=== PATIENT | male | born 1950 | race Hispanic/Latino ===

== ENCOUNTER 2017-10-11 12:05 | Day surgery (SDC) | payer MEDICARE, MEDICAID ==
[2017-10-07 12:50] VITALS: BMI 20.9
[2017-10-11 12:24] LABS: BASO # 0.17 K/mm3 (0.0-2.0); BASO % 2.2 % (0.0-3.0); EOS # 0.2 (0.0-0.7); EOS % 2.3 % (1.5-5.0); GRAN # 5.04 (1.4-6.5); GRAN % 64.4 % (50.0-68.0); HEMOGLOBIN 10.9 g/dL (14.0-18.0); LYMPH # 2.1 (1.2-3.4); LYMPH % 26.5 % (22.0-35.0); MEAN CELL VOLUME 76.8 fl (80.0-105.0); MEAN CORPUSCULAR HGB CONC 32.5 g/dl (31.0-37.0); MEAN PLATELET VOLUME 9.6 fl (7.0-11.0); MONO # 0.4 (0.1-0.6); MONO % 4.6 % (1.0-6.0); RBC 4.36 10^6/uL (3.5-6.1); RED CELL DISTRIBUTION WIDTH 17.5 % (11.5-14.5); WHITE BLOOD COUNT 7.8 10^3/ul (4.5-11.0)
[2017-10-11 12:38] LABS: CALCIUM 9.7 mg/dL (8.4-10.5)
[2017-10-11 12:48] LABS: INR 1.15 (0.93-1.08); PARTIAL THROMBOPLASTIN TIME 30.8 Seconds (25.1-36.5); PROTHROMBIN TIME 13.3 SECONDS (9.4-12.5)
[2017-10-11] MEDS ORDERED: Midazolam 2 MG/2 ML VIAL ONE ×2 (14:43→15:13)
[2017-10-11] MEDS ORDERED: Lidocaine 2% Inj (20ml) ONE (14:43)
[2017-10-11] MEDS ORDERED: Iodixanol 320 mg/ml 150 ml Bottle IV ONE (14:43)
[2017-10-11] MEDS ORDERED: Iodixanol 320 MG/ML 200 ML BOTTLE IV ONE ×2 (14:43→14:46)
[2017-10-11] MEDS ORDERED: Nitroglycerin 50mg in D5W 50 MG/250 ML BOTTLE IV ONE (14:57)
[2017-10-11] MEDS ORDERED: Dextrose 50% SYRINGE Inj (50 ml) ONE (16:27)
[2017-10-11] MEDS ORDERED: Oxycodone/Acetaminophen 5/325 mg Tab PO PRN (16:27)
[2017-10-11] MEDS ORDERED: Sodium Chloride 0.45% 1,000 ML IV SCH (16:30)
[2017-10-11 18:03] VITALS: RESP 20; TEMP 97
--- NOTE | 2017-10-11 18:20 | VASCULAR ---
PROCEDURE: 1. Abdominal aortogram and selective left lower extremity runoff 2. Distal left SFA and popliteal artery silver Hawk atherectomy, drug-eluting balloon angioplasty, and Viabahn stent graft placement 3. Anterior tibial artery origin angioplasty HISTORY: Severe peripheral vascular disease. Left SFA and popliteal recanalization with popliteal stent placement in 2016. [place] stent with recurrent severe claudication and early rest pain. Attempt to recannulize. PHYSICIAN(S): Luis Daniel Robnis M.D. TECHNIQUE: The relative risks and indications of the procedure were explained to the patient and consent obtained. The patient was hydrated prior to the procedure and the appropriate labs drawn. The patient was placed supine on the arteriogram table and the right groin prepped and draped in the usual sterile fashion. Conscious sedation and monitoring were provided throughout the procedure by a nurse. Via a right common femoral artery approach, a 5 [place] sheath was placed in the right groin. Through the sheath and over a guidewire, a 5 [place] flush catheter was placed in the distal abdominal aorta and an LPO DSA abdominal pelvic arteriogram performed. Imaging was limited due to the patient's elevated BUN and creatinine. The catheter was advanced over the bifurcation and placed in the left common femoral artery. An overlapping DSA left lower extremity arteriogram was performed to the calves. 0.035 glidewire was placed in the mid left SFA. A 7 [place] 65 cm destination sheath was placed in the mid left SFA. Heparin and nitroglycerin were given. The occluded distal left SFA and popliteal artery stent were crossed rather easily with 0.035 angled glidewire and 5 [place] catheter. 0.014 support wire was placed in the large left posterior tibial artery. [place] atherectomy of the distal left SFA and left popliteal artery stent was performed with and LS catheter. Four passes were performed. Antegrade flow was re-established. A suboptimal result was obtained. The left popliteal artery was dilated with a 5 millimeter x 150 drug-eluting balloon. The distal left SFA was dilated with a 6 mm x 150 drug-eluting balloon. A suboptimal result was obtained in the distal left SFA. Subsequently 86 mm by 15 cm Viabahn stent graft was deployed in the distal left SFA. This was dilated with a 6 mm balloon. The origin of the left posterior tibial artery was dilated with a 4 mm x 4 cm balloon. Completion angiograms were obtained. An excellent angiographic result was obtained with some mild residual stenosis within the left popliteal stent. The sheath was removed hemostasis obtained with a Perclose device. The patient tolerated the procedure well. Additional hydration was given. FINDINGS: The distal abdominal aorta is patent and calcified. Aortic bifurcation is patent. The common and external iliac arteries are patent on two views. Posterior plaque is noted in both common femoral arteries. The left profunda femoral artery is large. The left SFA is smoothly disease proximally. There is an occlusion of the left SFA in the adductor canal. This is 8 cm above the popliteal artery stent. The left popliteal artery stent is occluded. There is reconstitution of the terminal left popliteal artery. The left posterior tibial artery is large and the predominant supply to the foot. Left peroneal artery occludes in mid segment. The left anterior tibial artery occludes near its origin IMPRESSION: 1.Successful recanalization of the distal left SFA and popliteal artery stent using silver Hawk atherectomy, drug-eluting balloon angioplasty and stent graft placement as described above. 2. Successful left posterior tibial artery origin angioplasty. 3. Severe left tibial disease. Single vessel runoff via the left posterior tibial artery.
[2017-10-11 18:41] VITALS: BP 161/70; PULSE 73; O2SAT 95
== END 2017-10-11 18:54 | disposition home or self-care (01) ==
LOC: SDSVAS 12:05
PROVIDERS: ATTEND Radiology Vascular & Interventional Radiology
DX: I70.222 Atherosclerosis of native arteries of extremities with rest pain, left leg (principal)
CPT/HCPCS: 36415; 37227; 37228; 75710; 80048; 85025; 85610; 85730; 99152; 99153; C1725 ×5; C1760 ×2; C1764; C1769 ×4; C1876; C1887 ×2; C1894; J1644 ×2; J2250; J2405; J3010; J7030 ×2; Q9966

== ENCOUNTER 2017-10-12 09:47 | Emergency (ER) | payer MEDICARE, MEDICAID ==
[2017-10-12 09:47] VITALS: BMI 20.9
[2017-10-12 09:59] VITALS: TEMP 98.3
[2017-10-12] MEDS ORDERED: Oxycodone/Acetaminophen 5/325 mg Tab PO STA ×2 (10:44→13:13)
--- NOTE | 2017-10-12 10:49 | ED PDOC ---
Arrival/HPI - General Chief Complaint: Lower Extremity Problem/Injury Time Seen by Provider: 10/12/17 10:31 Historian: Patient - History of Present Illness Narrative History of Present Illness (Text): 10/12/17 10:44 A 67 year old male presents to the emergency department complaining of left lower leg pain since last night. Patient notes intermittent calf pain radiating to ankle and foot. He reports his pain began shortly after being discharged from the hospital after being treated for a blocked artery. Patient took Percocet 5mg, with mild relief. Patient denies any fever, chills, nausea, vomiting, abdominal pain, chest pain, shortness of breath or any other complaints. PMD: Dr. Maria Vascular surgeon: Dr. Luis Daniel Robins Time/Duration: Other (last night) Symptom Course: Unchanged, Intermittent Context: Home Past Medical History - Provider Review Nursing Documentation Reviewed: Yes - Infectious Disease Hx of Infectious Diseases: None - Tetanus Immunization Tetanus Immunization: Unknown - Cardiac Hx Pacemaker: No - Pulmonary Hx Respiratory Disorders: No - Neurological Hx Paralysis: No - HEENT Hx HEENT Disorder: No - Renal Hx Renal Disorder: No - Endocrine/Metabolic Hx Endocrine Disorders: Yes Hx Diabetes Mellitus Type 2: Yes - Hematological/Oncological Hx Blood Transfusions: No - Integumentary Hx Dermatological Disorder: No - Musculoskeletal/Rheumatological Hx Musculoskeletal Disorders: Yes - Gastrointestinal Hx Gastrointestinal Disorders: No - Genitourinary/Gynecological Hx Genitourinary Disorders: No - Psychiatric Hx Emotional Abuse: No Hx Physical Abuse: No Hx Substance Use: No - Past Surgical History Past Surgical History: No Previous - Anesthesia Hx Anesthesia Reactions: No Hx Malignant Hyperthermia: No - Suicidal Assessment Feels Threatened In Home Enviroment: No Family/Social History - Physician Review Nursing Documentation Reviewed: Yes Family/Social History: No Known Family HX Smoking Status: Light Smoker < 10 Cigarettes Daily Hx Alcohol Use: No Hx Substance Use: No Allergies/Home Meds Allergies/Adverse Reactions: Allergies No Known Allergies Allergy (Verified 10/12/17 10:01) Review of Systems - Physician Review All systems were reviewed & negative as marked: Yes - Review of Systems Constitutional: absent: Fevers, Night Sweats Respiratory: absent: SOB Cardiovascular: Calf Pain (left calf pain radiating down towards ankle and foot) . absent: Chest Pain Gastrointestinal: absent: Abdominal Pain, Nausea, Vomiting Physical Exam - Physical Exam Narrative Physical Exam (Text): Constitutional: No acute distress. Head: Normocephalic. Atraumatic. Eyes: PERRL. ENT: Moist mucous membranes. Neck: Supple. Cardiovascular: Regular rate. Chest: No tenderness. Respiratory: Clear to auscultation bilaterally. GI: Soft. Nontender. Nondistended. : C/D/I dressing to right groin. Back: No CVA tenderness. Musculoskeletal: Distal toes of LLE cold to touch. No dark or blue skin discoloration. No gangrene. Full ROM in extremities. No tenderness or swelling of extremities. Skin: No rash. Neurologic: Alert, no focal deficit. Vital Signs Reviewed: Yes Vital Signs Temp Pulse Resp BP Pulse Ox 10/12/17 13:27 98.3 F 61 18 130/65 98 10/12/17 12:49 61 18 130/65 98 10/12/17 11:07 64 18 132/69 98 10/12/17 09:57 98.3 F 68 16 134/73 99 Temperature: Afebrile Blood Pressure: Normal Pulse: Regular Respiratory Rate: Normal Appearance: Positive for: Well-Appearing, Non-Toxic, Comfortable Pain Distress: None Mental Status: Positive for: Alert and Oriented X 3 Medical Decision Making ED Course and Treatment: 10/12/17 10:44 Impression: A 67 year old male with left lower extremity pain Plan: -- Percocet -- Reassess and disposition Progress Notes: Discussed case with Dr. Robins who recommended repeat JUNIOR. JUNIOR shows improved indices compared to few days ago. No leg edema. Creatinine not worsened. Patient offered observation for further pain control but he refused, requested pain medication. BONSAI TENDER checked, no previous opiates. Dr. Robins states patient can follow up with him this upcoming week. - Lab Interpretations Lab Results: 10/12/17 11:35 10/12/17 11:35 Lab Results 10/12/17 11:35: Sodium 139, Potassium 4.4, Chloride 102, Carbon Dioxide 25, Anion Gap 16, BUN 33 H, Creatinine 1.7 H, Est GFR ( Amer) 49, Est GFR ( Non-Af Amer) 40, Random Glucose 128 H, Calcium 9.2, Total Bilirubin 0.3, AST 35 , ALT 32, Alkaline Phosphatase 23 L, Total Protein 6.7, Albumin 4.2, Globulin 2.5, Albumin/Globulin Ratio 1.7 05/09/18 11:35: WBC 8.6, RBC 4.35, Hgb 10.9 L, Hct 33.4 L, MCV 76.8 L, MCH 25.1 , MCHC 32.6, RDW 17.4 H, Plt Count 445, MPV 10.0, Gran % 70.7 H, Lymph % (Auto) 19.6 L, [place] % (Auto) 6.0, Eos % (Auto) 2.4, Baso % (Auto) 1.3, Gran # 6.09, Lymph # (Auto) 1.7, [place] # (Auto) 0.5, Eos # (Auto) 0.2, Baso # (Auto) 0.11 - RAD Interpretation Radiology Orders: 10/12/17 11:12 LOWER EXT ART NON-INV COMPL [US] Stat - Medication Orders Current Medication Orders: Discontinued Medications Oxycodone/Acetaminophen (Percocet 5/325 Mg Tab) 1 tab PO STAT STA Stop: 10/12/17 10:45 Last Admin: 10/12/17 11:11 Dose: 1 tab MAR Pain Assessment Document 10/12/17 11:11 EQ (Rec: 10/12/17 11:11 EQ [id number]) Pain Reassessment Is this a pain reassessment? No Sleep Is patient sleeping during reassessment? No Presence of Pain Presence of Pain Yes Oxycodone/Acetaminophen (Percocet 5/325 Mg Tab) 1 tab PO STAT STA Stop: 10/12/17 13:14 Last Admin: 10/12/17 13:20 Dose: 1 tab MAR Pain Assessment Document 10/12/17 13:20 EQ (Rec: 10/12/17 13:20 EQ [id number]) Pain Reassessment Is this a pain reassessment? No Sleep Is patient sleeping during reassessment? No Presence of Pain Presence of Pain Yes Pain Scale Used Pain Scale Used Numeric - Scribe Statement The provider has reviewed the documentation as recorded by the Yousufibrehana Johnson Provider Scribe Attestation: All medical record entries made by the Scribe were at my direction and personally dictated by me. I have reviewed the chart and agree that the record accurately reflects my personal performance of the history, physical exam, medical decision making, and the department course for this patient. I have also personally directed, reviewed, and agree with the discharge instructions and disposition. Disposition/Present on Arrival - Present on Arrival Any Indicators Present on Arrival: No History of DVT/PE: No History of Uncontrolled Diabetes: No Urinary Catheter: No History of Decub. Ulcer: No History Surgical Site Infection Following: None - Disposition Have Diagnosis and Disposition been Completed?: Yes Diagnosis: Leg pain Disposition: HOME/ ROUTINE Disposition Time: 13:00 Patient Plan: Discharge Condition: STABLE Discharge Instructions (ExitCare): Peripheral Vascular (Arterial) Disease (DC) Prescriptions: oxyCODONE/Acetaminophen [Percocet 5/325 mg Tab] 2 tab PO Q6 #14 tab Referrals: Luis Daniel Robins MD [Staff Provider] - Follow up with primary Forms: [email or web address] ([place])
[2017-10-12 11:07] VITALS: RESP 18; O2SAT 98
[2017-10-12 11:54] LABS: BASO # 0.11 K/mm3 (0.0-2.0); BASO % 1.3 % (0.0-3.0); EOS # 0.2 (0.0-0.7); EOS % 2.4 % (1.5-5.0); GRAN # 6.09 (1.4-6.5); GRAN % 70.7 % (50.0-68.0); HEMOGLOBIN 10.9 g/dL (14.0-18.0); LYMPH # 1.7 (1.2-3.4); LYMPH % 19.6 % (22.0-35.0); MEAN CELL VOLUME 76.8 fl (80.0-105.0); MEAN CORPUSCULAR HEMOGLOBIN 25.1 pg (25.0-35.0); MEAN CORPUSCULAR HGB CONC 32.6 g/dl (31.0-37.0); MONO # 0.5 (0.1-0.6); RBC 4.35 10^6/uL (3.5-6.1); RED CELL DISTRIBUTION WIDTH 17.4 % (11.5-14.5)
[2017-10-12 12:12] LABS: ALB/GLOB RATIO 1.7 (1.1-1.8); ALBUMIN 4.2 g/dL (3.0-4.8); CALCIUM 9.2 mg/dL (8.4-10.5)
[2017-10-12 12:34] LABS: WHITE BLOOD COUNT 8.6 10^3/ul (4.5-11.0)
[2017-10-12 12:49] VITALS: BP 130/65; PULSE 61
--- NOTE | 2017-10-13 16:24 | US ---
PROCEDURE: Lower extremity JUNIOR exam HISTORY: Peripheral vascular disease. Recent left popliteal artery stent recanalization. Left foot ischemia. Evaluate for subacute thrombosis. PHYSICIAN(S): Luis Daniel Robins MD. FINDINGS: The right resting JUNIOR is normal, 1.0. The left resting JUNIOR is moderately abnormal, 0.67 The brachial systolic pressures are symmetric. The pressures and PVR waveforms are normal at all levels on the right There is a significant gradient across the left knee. The left calf ankle and metatarsal waveforms are severely blunted. This is not significantly changed from the pre intervention exam. It likely represents subacute thrombosis of the distal left SFA, popliteal, or trifurcation. IMPRESSION: 1. No change in pressures and PVR waveforms on the left. This likely represents subacute thrombosis of the left distal SFA, popliteal, and trifurcation.
== END 2017-10-12 13:27 | disposition home or self-care (01) ==
LOC: ED 09:47
DX: M79.605 Pain in left leg (principal); E11.9 Type 2 diabetes mellitus without complications

== ENCOUNTER 2017-10-25 10:50 | Day surgery (SDC) | payer MEDICARE, MEDICAID ==
[2017-10-25 11:21] LABS: BASO # 0.15 K/mm3 (0.0-2.0); BASO % 1.6 % (0.0-3.0); EOS # 0.3 (0.0-0.7); EOS % 2.6 % (1.5-5.0); GRAN # 6.19 (1.4-6.5); GRAN % 64.6 % (50.0-68.0); HEMOGLOBIN 11.5 g/dL (14.0-18.0); LYMPH # 2.5 (1.2-3.4); LYMPH % 26.2 % (22.0-35.0); MEAN CELL VOLUME 75.3 fl (80.0-105.0); MEAN CORPUSCULAR HEMOGLOBIN 25.1 pg (25.0-35.0); MEAN CORPUSCULAR HGB CONC 33.3 g/dl (31.0-37.0); MEAN PLATELET VOLUME 9.7 fl (7.0-11.0); MONO # 0.5 (0.1-0.6); RBC 4.58 10^6/uL (3.5-6.1); RED CELL DISTRIBUTION WIDTH 17.8 % (11.5-14.5); WHITE BLOOD COUNT 9.6 10^3/ul (4.5-11.0)
[2017-10-25 11:32] LABS: CALCIUM 9.7 mg/dL (8.4-10.5)
[2017-10-25 11:36] LABS: INR 1.09 (0.93-1.08); PARTIAL THROMBOPLASTIN TIME 33.5 Seconds (25.1-36.5); PROTHROMBIN TIME 12.5 SECONDS (9.4-12.5)
[2017-10-25] MEDS ORDERED: Heparin25000 units/250ml 1/2NS 25,000 UNITS/250 ML BAG IV ONE (12:46)
[2017-10-25] MEDS ORDERED: Lidocaine 2% Inj (20ml) ONE (12:46)
[2017-10-25] MEDS ORDERED: Nitroglycerin 50mg in D5W 50 MG/250 ML BOTTLE IV ONE (13:10)
[2017-10-25] MEDS ORDERED: Iodixanol 320 MG/ML 200 ML BOTTLE IV ONE (13:14)
[2017-10-25] MEDS ORDERED: Iodixanol 320 mg/ml 150 ml Bottle IV ONE (13:14)
[2017-10-25] MEDS ORDERED: Midazolam 2 MG/2 ML VIAL ONE ×2 (13:59→14:13)
[2017-10-25] MEDS ORDERED: Oxycodone/Acetaminophen 5/325 mg Tab PO PRN (14:58)
[2017-10-25] MEDS ORDERED: Sodium Chloride 0.45% 1,000 ML IV SCH (15:00)
[2017-10-25 16:25] VITALS: RESP 18; TEMP 98.6
[2017-10-25 16:58] VITALS: O2SAT 98
[2017-10-25 17:44] VITALS: BP 148/77; PULSE 72
--- NOTE | 2017-10-25 19:32 | VASCULAR ---
PROCEDURE: 1. Abdominal aortogram and selective left lower extremity runoff. 2. Left below-knee popliteal angioplasty. 3. Small left posterior tibial artery angioplasty. 4. Term vascular ultrasound of the left popliteal artery below the knee and the proximal left posterior tibial artery. HISTORY: Severe peripheral vascular disease. Recent left popliteal artery recanalization with subacute thrombosis. Evaluate for dissection or thrombus. PHYSICIAN(S): Luis Daniel Robins MD. TECHNIQUE: The relative risks and indications of the procedure were explained to the patient and consent obtained. The patient was hydrated prior to the procedure and the appropriate labs drawn. The patient was placed supine on the arteriogram table and the right groin prepped and draped in the usual sterile fashion. Conscious sedation and monitoring were provided throughout the procedure by a nurse. Via a right common femoral artery approach, a 5 [place] sheath was placed in the right groin. Through the sheath and over a guidewire, a 5 [place] flush catheter was in the distal abdominal aorta and an LPO DSA abdominal pelvic arteriogram performed. The catheter was advanced over bifurcation placed in the left common femoral artery. An overlapping DSA left lower extremity arteriogram was performed. The catheter was advanced into the proximal left SFA. Distal imaging was performed. A support wire was placed in the left SFA. A 6 [place]an 70 cm sheath was placed in the mid left SFA. Nitroglycerin heparin were given. 0.035 angled glidewire and 5 [place] catheter advanced in the proximal left posterior tibial artery. Exchange is made for 0.014 support wire. Additional images were performed. Intravascular ultrasound of the distal left SFA and popliteal arteries performed. Intravascular ultrasound of the proximal left anterior tibial artery was performed. This revealed that the previously placed stents were widely patent without thrombus. There was residual atherosclerotic cysts of the terminal left popliteal artery and proximal left posterior tibial artery. Subsequently the proximal left posterior tibial artery and left popliteal artery distally were dilated with a 5 mm x 120 mm balloon. Left posterior tibial artery is also dilated with a 4 mm x 4 cm balloon. Intravascular ultrasound revealed improved result. Completion angiograms were obtained. The sheath was removed hemostasis obtained. The patient tolerated the procedure well. FINDINGS: The distal abdominal aorta is calcified and patent. Aortic bifurcation is patent. The common iliac arteries are somewhat disease without radiographically significant stenosis. The internal iliac arteries are patent bilaterally. The external iliac arteries are patent bilaterally. Left lower extremity: There is mild to moderate posterior plaque in the left common femoral artery. The left profunda femoral artery is patent. There is calcified smooth disease the left SFA. Overlapping stent grafts and stents are seen in the terminal left SFA and left popliteal arteries. The stents are widely patent. There is single vessel runoff via a large left posterior tibial artery. Left anterior tibial and peroneal artery is occluded proximally. Distal images reveal a patent plantar arch with pedal occlusive disease and collaterals. IMPRESSION: 1. Patent left SFA and popliteal stents. 2. Residual stenosis of the distal left popliteal artery and proximal left posterior tibial arteries. 3. Successful left below-knee popliteal artery angioplasty with a 5 mm balloon. 4. Successful proximal left posterior tibial artery angioplasty. 5. Intravascular ultrasound the distal left SFA, popliteal artery, and proximal left posterior tibial arteries.
== END 2017-10-25 18:30 | disposition home or self-care (01) ==
LOC: SDSVAS 10:50
PROVIDERS: ATTEND Radiology Vascular & Interventional Radiology
DX: I70.202 Unspecified atherosclerosis of native arteries of extremities, left leg (principal); I10 Essential (primary) hypertension; E78.5 Hyperlipidemia, unspecified; E11.9 Type 2 diabetes mellitus without complications; Z79.84 Long term (current) use of oral hypoglycemic drugs
CPT/HCPCS: 36415; 37224; 37228; 37253; 75710; 80048; 85025; 85610; 85730; 99152; 99153; C1725 ×3; C1753; C1760; C1769 ×4; C1887; C1894; J0690; J1644 ×3; J2250; J2405; J2997; J3010; J7030 ×2; Q9966

== ENCOUNTER 2017-11-17 15:27 | Emergency (ER) | payer MEDICARE, MEDICAID ==
[2017-11-17 16:41] VITALS: BMI 20.4
[2017-11-17 17:30] LABS: URINE BILIRUBIN NEGATIVE (NEGATIVE); URINE BLOOD NEGATIVE (NEGATIVE); URINE GLUCOSE (UA) NEGATIVE (NEGATIVE); URINE LEUKOCYTE ESTERASE LARGE Leu/uL (NEGATIVE); URINE PROTEIN NEGATIVE mg/dL (<30 mg/dL); URINE UROBILINOGEN 0.2 E.U./dL (<1 E.U./dL)
[2017-11-17 17:33] LABS: URINE APPEARANCE SL CLOUDY (CLEAR); URINE COLOR LIGHT YELLOW (YELLOW)
[2017-11-17 17:39] LABS: URINE BACTERIA FEW (NEG); URINE EPITHELIAL CELLS 0 - 2 /hpf (0-5); URINE RBC 0 - 2 /hpf (0-2); URINE WBC 20 - 25 /hpf (0-6)
[2017-11-17 17:50] LABS: VENOUS BLOOD GAS BASE EXCESS -1.3 mmol/L (0.0-2.0); VENOUS BLOOD GAS PO2 158 mm/Hg (30-55); VENOUS BLOOD PH 7.42 (7.32-7.43)
[2017-11-17 17:58] LABS: BASO # 0.09 K/mm3 (0.0-2.0); BASO % 0.6 % (0.0-3.0); EOS % 0.1 % (1.5-5.0); GRAN # 13.23 (1.4-6.5); GRAN % 88.8 % (50.0-68.0); HEMOGLOBIN 10.1 g/dL (14.0-18.0); LYMPH # 0.8 (1.2-3.4); LYMPH % 5.4 % (22.0-35.0); MEAN CELL VOLUME 74.6 fl (80.0-105.0); MEAN CORPUSCULAR HEMOGLOBIN 24.9 pg (25.0-35.0); MEAN CORPUSCULAR HGB CONC 33.4 g/dl (31.0-37.0); MEAN PLATELET VOLUME 9.9 fl (7.0-11.0); MONO # 0.8 (0.1-0.6); MONO % 5.1 % (1.0-6.0); RBC 4.05 10^6/uL (3.5-6.1); RED CELL DISTRIBUTION WIDTH 18.2 % (11.5-14.5); WHITE BLOOD COUNT 14.9 10^3/ul (4.5-11.0)
[2017-11-17 19:05] VITALS: PULSE 89
--- NOTE | 2017-11-17 19:08 | ED PDOC ---
Arrival/HPI - General Chief Complaint: Male Genitourinary Time Seen by Provider: 11/17/17 16:32 Historian: Patient - History of Present Illness Narrative History of Present Illness (Text): 11/17/17 19:04 67 year old male, whose past medical history includes diabetes, who presents to the emergency department complaining of fever, increased urination, and particulates in the urine for 2 days. Patient notes he took amoxicillin with minimal relief. Patient notes Tmax at 100. Patient denies any chest pain, shortness of breath, nausea, vomiting, diarrhea, cough, congestion, back pain, neck pain, headache, dizziness, or any other complaints. Time/Duration: < week (2 days) Symptom Onset: Gradual Symptom Course: Unchanged Activities at Onset: Light Context: Home Past Medical History - Provider Review Nursing Documentation Reviewed: Yes - Infectious Disease Hx of Infectious Diseases: None - Tetanus Immunization Tetanus Immunization: Unknown - Cardiac Hx Hypertension: Yes Hx Pacemaker: No - Pulmonary Hx Respiratory Disorders: No - Neurological Hx Paralysis: No - HEENT Hx HEENT Disorder: No - Renal Hx Renal Disorder: No - Endocrine/Metabolic Hx Endocrine Disorders: Yes Hx Diabetes Mellitus Type 2: Yes - Hematological/Oncological Hx Blood Transfusions: No - Integumentary Hx Dermatological Disorder: No - Musculoskeletal/Rheumatological Hx Musculoskeletal Disorders: Yes - Gastrointestinal Hx Gastrointestinal Disorders: No - Genitourinary/Gynecological Hx Genitourinary Disorders: No - Psychiatric Hx Emotional Abuse: No Hx Physical Abuse: No Hx Substance Use: No - Past Surgical History Past Surgical History: No Previous - Anesthesia Hx Anesthesia Reactions: No Hx Malignant Hyperthermia: No - Suicidal Assessment Feels Threatened In Home Enviroment: No Family/Social History - Physician Review Nursing Documentation Reviewed: Yes Family/Social History: Unknown Family HX Smoking Status: Light Smoker < 10 Cigarettes Daily Hx Alcohol Use: No Hx Substance Use: No Allergies/Home Meds Allergies/Adverse Reactions: Allergies No Known Allergies Allergy (Verified 10/12/17 10:01) Home Medications: Home Meds Medication Instructions Recorded Confirmed metFORMIN [glucOPHAGE] 500 mg PO DAILY 10/21/17 11/17/17 Repaglinide [Prandin] 2 mg PO TID 10/24/17 11/17/17 ALPRAZolam [Xanax] 1 mg PO TID 10/25/17 11/17/17 Atorvastatin [Lipitor] 1 tab PO HS 10/25/17 11/17/17 Fenofibrate [Tricor] 1 tab PO DAILY 10/25/17 11/17/17 Polyethylene Glycol 8000 [Base E] 1 pow PO DAILY 10/25/17 11/17/17 Pregabalin [Lyrica] 50 mg PO DAILY 10/25/17 11/17/17 SITagliptin [Januvia] 100 mg PO DAILY 10/25/17 11/17/17 Sodium Polystyrene Sulfonate 15 gm PO MWF 10/25/17 11/17/17 [Kalexate] amLODIPine [Norvasc] 10 mg PO DAILY 10/25/17 11/17/17 cloNIDine [Catapres] 0.1 mg PO TID 10/25/17 11/17/17 cloNIDine [Catapres] 0.3 mg PO TID 10/25/17 11/17/17 Review of Systems - Physician Review All systems were reviewed & negative as marked: Yes - Review of Systems Constitutional: Normal Eyes: Normal ENT: Normal Respiratory: Normal. absent: SOB, Cough Cardiovascular: Normal. absent: Chest Pain Gastrointestinal: Normal. absent: Abdominal Pain Genitourinary Male: Frequency (increased frequency in urination). absent: Hematuria Musculoskeletal: Normal. absent: Back Pain, Neck Pain Skin: Normal. absent: Rash Neurological: Normal. absent: Headache, Dizziness Endocrine: Normal Hemo/Lymphatic: Normal Psychiatric: Normal Physical Exam Vital Signs Reviewed: Yes Vital Signs Temp Pulse Resp BP Pulse Ox 11/17/17 19:58 98.7 F 89 18 138/87 100 11/17/17 19:04 89 17 140/70 98 11/17/17 15:40 98.8 F 93 H 18 144/63 96 Temperature: Afebrile Blood Pressure: Normal Pulse: Regular Respiratory Rate: Normal Appearance: Positive for: Well-Appearing, Non-Toxic, Comfortable Pain Distress: None Mental Status: Positive for: Alert and Oriented X 3 - Systems Exam Head: Present: Atraumatic, Normocephalic Pupils: Present: PERRL Extroacular Muscles: Present: EOMI Conjunctiva: Present: Normal Mouth: Present: Moist Mucous Membranes Neck: Present: Normal Range of Motion. No: Meningeal Signs, MIDLINE TENDERNESS Respiratory/Chest: Present: Clear to Auscultation, Good Air Exchange. No: Respiratory Distress, Accessory Muscle Use Cardiovascular: Present: Regular Rate and Rhythm, Normal S1, S2. No: Murmurs Abdomen: No: Tenderness, Distention, Peritoneal Signs Back: Present: Normal Inspection. No: CVA Tenderness, Midline Tenderness, Paraspinal Tenderness Upper Extremity: Present: Normal Inspection. No: Cyanosis, Edema Lower Extremity: Present: Normal Inspection. No: Edema Neurological: Present: GCS=15, CN II-XII Intact, Speech Normal Skin: Present: Warm, Dry, Normal Color. No: Rashes Psychiatric: Present: Alert, Oriented x 3, Normal Insight, Normal Concentration Medical Decision Making ED Course and Treatment: 11/17/17 19:10 Impression: 67 year old male presents to the emergency department complaining of fever, particulates in urine, and increased urination Plan: -- Rocephin -- Blood Culture -- Urine Culture -- Reassess and disposition Progress Notes: Case discussed with Dr. Maria, who recommended admission. Patietn didn't want to stay, plan was made for pt to see Dr. Maria tomorrow as outpatient. Dr. Maria wrote abx for pt as outpatient. - Lab Interpretations Lab Results: 11/17/17 17:30 11/17/17 17:30 Lab Results 11/17/17 17:30: Sodium 130 L, Chloride 94 L, Potassium 4.5, Carbon Dioxide 21, Anion Gap 19, BUN 35 H, Creatinine 1.7 H, Est GFR ( Amer) 49, Est GFR ( Non-Af Amer) 40, Random Glucose 171 H, Calcium 9.0 11/17/17 17:30: pO2 158 H, VBG pH 7.42, VBG pCO2 35.0 L, VBG HCO3 22.7, VBG Total CO2 23.8, VBG O2 Sat (Calc) 97.5 H, VBG Base Excess -1.3 L, VBG Potassium 4.5, Sodium 126.0 L, Chloride 97.0 L, Glucose 180 H, Lactate 0.8, FiO2 21.0, Venous Blood Potassium 4.5 11/17/17 17:30: WBC 14.9 H D, RBC 4.05, Hgb 10.1 L, Hct 30.2 L, MCV 74.6 L, MCH 24.9 L, MCHC 33.4, RDW 18.2 H, Plt Count 507 H, MPV 9.9, Gran % 88.8 H, Lymph % (Auto) 5.4 L, [place] % (Auto) 5.1, Eos % (Auto) 0.1 L, Baso % (Auto) 0.6, Gran # 13.23 H, Lymph # (Auto) 0.8 L, [place] # (Auto) 0.8 H, Eos # (Auto) 0.0, Baso # ( Auto) 0.09 11/17/17 17:15: Urine Color Light yellow, Urine Appearance Sl cloudy, Urine pH 6.0, Ur Specific [place] 1.010, Urine Protein Negative, Urine Glucose (UA) Negative, Urine Ketones Negative, Urine Blood Negative, Urine Nitrate Negative, Urine Bilirubin Negative, Urine Urobilinogen 0.2, Ur Leukocyte Esterase Large H , Urine RBC 0 - 2, Urine WBC 20 - 25, Ur Epithelial Cells 0 - 2, Urine Bacteria Few - Medication Orders Current Medication Orders: Discontinued Medications Ceftriaxone Sodium (Rocephin 1 Gram Ivpb) 1 gm in 100 mls @ 100 mls/hr IVPB STAT STA PRN Reason: Protocol Stop: 11/17/17 20:15 Last Admin: 11/17/17 19:25 Dose: 100 mls/hr eMAR Start Stop Document 11/17/17 19:25 AD (Rec: 11/17/17 19:25 AD [id number]) Intravenous Solution Start Date 11/17/17 Start Time 19:25 - Scribe Statement The provider has reviewed the documentation as recorded by the Scribrehana Patiño All medical record entries made by the Scribrehana were at my direction and personally dictated by me. I have reviewed the chart and agree that the record accurately reflects my personal performance of the history, physical exam, medical decision making, and the department course for this patient. I have also personally directed, reviewed, and agree with the discharge instructions and disposition. Disposition/Present on Arrival - Present on Arrival Any Indicators Present on Arrival: No History of DVT/PE: No History of Uncontrolled Diabetes: No Urinary Catheter: No History of Decub. Ulcer: No History Surgical Site Infection Following: None - Disposition Have Diagnosis and Disposition been Completed?: Yes Diagnosis: UTI (urinary tract infection) Disposition: HOME/ ROUTINE Disposition Time: 18:00 Patient Plan: Discharge Condition: IMPROVED Discharge Instructions (ExitCare): Urinary Tract Infection, Adult (DC) Additional Instructions: Dr. Maria will call in antibiotics, please followup with him tomorrow. Forms: [facility] (Danish)
[2017-11-17] MEDS ORDERED: cefTRIAXone 1 gm 1 GM/100 ML BAG IVPB STA (19:16)
[2017-11-17 20:00] VITALS: BP 138/87; RESP 18; TEMP 98.7; O2SAT 100
== END 2017-11-17 19:59 | disposition home or self-care (01) ==
LOC: ED 15:27
DX: N39.0 Urinary tract infection, site not specified (principal); I10 Essential (primary) hypertension; E11.9 Type 2 diabetes mellitus without complications; F17.210 Nicotine dependence, cigarettes, uncomplicated
CPT/HCPCS: 80048; 81001; 82803; 85025; 87040; 87086; 96374; 99284; J0696

== ENCOUNTER 2018-08-28 07:55 | Outpatient (CLI) | payer MEDICARE, MEDICAID | END 2018-08-28 07:56 | disposition home or self-care (01) | LOC: CARDIO 07:55 ==

== ENCOUNTER 2018-09-14 07:43 | Day surgery (SDC) | payer MEDICARE, MEDICAID ==
[2018-09-05 13:53] VITALS: BMI 19.8
--- NOTE | 2018-09-14 01:56 | HP ---
DATE OF EXAM: 09/13/2018 REASON FOR ADMISSION: Left heart cath, possible angioplasty, abnormal stress test, diabetes. BRIEF CLINICAL HISTORY: A 68-year-old male with past medical history of diabetes, hypertension, hyperlipidemia, abnormal stress. The patient is scheduled for elective cardiac cath and possible angioplasty. Patient is also PAD status post PTCA x2. Recently having chest pain and abnormal stress test. PAST MEDICAL HISTORY: Significant for diabetes, hypertension, hyperlipidemia, angioplasty status post PTCA that was committed twice. SOCIAL HISTORY: Denies any smoking, denies any history of alcohol abuse. CURRENT MEDICATIONS: Patient is taking metoprolol succinate 50 mg daily, clonidine 0.3 mg p.o. b.i.d., amlodipine 10 mg daily, Januvia 100 mg daily, Prandin 2 mg daily, TriCor 1 tablet daily, atorvastatin one tablet daily, aspirin 81 mg daily, Xanax 1 mg p.o. t.i.d. ALLERGIES: NO KNOWN DRUG ALLERGY. CARDIAC WORKUP: As follows; patient had a stress test dated 08/28/2018 that revealed abnormal cardiac perfusion study, partially reversible anteroapical defect suspicious for ischemia, fixed inferior defect most likely secondary to diaphragmatic attenuation, ejection fraction 58%. Patient has a peripheral vascular disease as mentioned in the last peripheral intervention was 10/28/2017 that was done by Dr. Robins, abdominal aortogram, selective lower extremity runoff, and left below-knee popliteal angioplasty, small left posterior tibial angioplasty. REVIEW OF SYSTEMS: As per HPI. PHYSICAL EXAMINATION: As follows; GENERAL: Height of the patient 6 feet. Weight of the patient 150 pounds. Body mass index 20 kg/m2. VITAL SIGNS: Temperature afebrile, heart rate 80, and blood pressure 130/80. HEENT: PERRLA intact. NECK: Supple. No carotid bruit. No thyromegaly. CHEST: Clear to auscultation. HEART: S1 and S2 regular. ABDOMEN: Soft. EXTREMITIES: Clubbing and cyanosis negative. LABORATORY DATA: Blood workup pending. IMPRESSION: A 68-year-old male with past medical history of diabetes, hypertension, hyperlipidemia, severe peripheral arterial disease status post multiple percutaneous transluminal coronary angioplasty admitted for possible angioplasty because of an abnormal stress test dated 08/28/2018 that shows apical defect suspicious for ischemia. Ejection fraction of 58%. RECOMMENDATIONS: We will load aspirin and Plavix. Risks and benefits and alternatives discussed with the patient including complication, but not limited to damage to the artery, heart attack, coronary perforation, retroperitoneal bleed. If the patient agrees, we will proceed for cardiac cath. Further recommendation after cardiac cath. We will follow with you. Thank you Dr. Maria for providing us the opportunity in taking care of the patient, Brady Sue. Yisel Davis MD
[2018-09-14 08:37] LABS: BASO # 0.27 K/mm3 (0.0-2.0); BASO % 2.7 % (0.0-3.0); EOS # 0.3 (0.0-0.7); EOS % 3.4 % (1.5-5.0); HEMOGLOBIN 12.5 g/dL (14.0-18.0); LYMPH # 2.4 (1.2-3.4); LYMPH % 24.1 % (22.0-35.0); MEAN CELL VOLUME 78.4 fl (80.0-105.0); MEAN CORPUSCULAR HGB CONC 31.8 g/dl (31.0-37.0); MEAN PLATELET VOLUME 10.2 fl (7.0-11.0); MONO # 0.7 (0.1-0.6); MONO % 6.7 % (1.0-6.0); RBC 5.01 10^6/uL (3.5-6.1); RED CELL DISTRIBUTION WIDTH 17.5 % (11.5-14.5); WHITE BLOOD COUNT 10.1 10^3/uL (4.5-11.0)
[2018-09-14 08:54] LABS: CALCIUM 10.1 mg/dL (8.4-10.5); INR 1.16; PARTIAL THROMBOPLASTIN TIME 36.6 Seconds (26.9-38.3); PROTHROMBIN TIME 13.1 SECONDS (9.4-12.5)
--- NOTE | 2018-09-14 09:38 | CARD ---
APPROVED REPORT Date of service: 09/14/2018 EKG Measurement Heart [id number] <Conclusion> Normal sinus rhythm Voltage criteria for left ventricular hypertrophy Abnormal ECG
[2018-09-14] MEDS ORDERED: Lidocaine PF 2% (5 ml) Inj (For Cardiac Arrhy) ONE (10:20)
[2018-09-14] MEDS ORDERED: Iohexol 350mgl/ml 50 ML ONE (10:21)
[2018-09-14] MEDS ORDERED: Iodixanol 320 MG/ML 200 ML BOTTLE IV ONE (10:21)
[2018-09-14] MEDS ORDERED: Midazolam 2 MG/2 ML VIAL ONE ×2 (10:39→10:59)
[2018-09-14] MEDS ORDERED: Sodium Chloride 0.9% 1,000 ML IV SCH (11:30)
--- NOTE | 2018-09-14 12:22 | CPOSTOP ---
DATE: 09/14/2018 CARDIOVASCULAR LAB PROCEDURE ORCHESTRA CONDUCTOR: Sharon heat treat technician. TYPE OF PROCEDURE: Moderate conscious sedation. SEDATION: Total 2 mg Versed, 100 mg of fentanyl given periodically, started with 1 mg of Versed and 50 mg fentanyl. BRIEF PROCEDURE: Unstable angina, abnormal stress test, severe PAD. PROCEDURE PERFORMED: Left heart catheterization. FINDINGS: Nonobstructive coronary artery disease. FINAL DIAGNOSES: Nonobstructive coronary artery disease, limited damage to the circumflex, preserved LV function. Postprocedure, the patient's condition stable. VASCULAR ACCESS SITE: Right femoral artery. CLOSURE DEVICE: Mynx. RADIATION DOSE: 3748.7 mGy unit. CUMULATIVE DOSE: 479 mGy unit. TOTAL FLOW TIME: 4.5 minutes. DATE OF PROCEDURE: 09/14/2018. Yisel Davis MD
[2018-09-14 15:29] VITALS: O2SAT 99
[2018-09-14 16:27] LABS: BASO # 0.25 K/mm3 (0.0-2.0); BASO % 2.5 % (0.0-3.0); EOS # 0.3 (0.0-0.7); EOS % 2.7 % (1.5-5.0); HEMOGLOBIN 11.9 g/dL (14.0-18.0); LYMPH # 2.6 (1.2-3.4); LYMPH % 25.7 % (22.0-35.0); MEAN CELL VOLUME 78.1 fl (80.0-105.0); MEAN CORPUSCULAR HEMOGLOBIN 25.3 pg (25.0-35.0); MEAN CORPUSCULAR HGB CONC 32.4 g/dl (31.0-37.0); MEAN PLATELET VOLUME 10.1 fl (7.0-11.0); MONO # 0.4 (0.1-0.6); MONO % 4.1 % (1.0-6.0); RBC 4.7 10^6/uL (3.5-6.1); RED CELL DISTRIBUTION WIDTH 17.4 % (11.5-14.5)
[2018-09-14 16:36] LABS: CALCIUM 9.8 mg/dL (8.4-10.5)
--- NOTE | 2018-09-14 17:58 | CARD ---
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 creatinine 1.6-1.8. INDICATION The indication(s) include : positive stress test. CASE TECHNIQUE The patient was brought electively to the Cardiac Catheterization Laboratory in a fasting state and was prepped and draped in a sterile manner. The right femoral groin was infiltrated with 2% Lidocaine subcutaneous anesthesia. A 6 Fr x 11 cm Rola sheath was inserted into the right femoral artery without difficulty. Coronary angiography was performed using coronary diagnostic catheters. Left ventriculogram was performed in REYES projection. Closure device was deployed with a 6 Fr / 7 Fr MynxGrip without any complications. The patient tolerated the procedure well and there were no complications associated with the procedure. Vessel Analysis The patient's coronary anatomy is co-dominant. The left main coronary artery is a large size vessel with diffuse calcification noted throughout this vessel and without significant stenosis. The left main bifurcates to the left anterior descending and circumflex. The left anterior descending artery is a medium size vessel with diffuse calcification noted throughout this vessel and without significant stenosis. The first diagonal branch is a small size vessel with diffuse calcification noted throughout this vessel and without significant stenosis. The second diagonal branch is a small size vessel with diffuse calcification noted throughout this vessel and without significant stenosis. The circumflex artery is a medium size vessel with diffuse calcification noted throughout this vessel and with significant stenosis. There is a 60% stenosis in the proximal segment. The first obtuse marginal branch is a medium size vessel with diffuse calcification noted throughout this vessel and without significant stenosis. The second obtuse marginal branch is a medium size vessel with diffuse calcification noted throughout this vessel and without significant stenosis. The left posterior descending artery is a medium size vessel with diffuse calcification noted throughout this vessel and without significant stenosis. The right coronary artery is a large size vessel with diffuse calcification noted throughout this vessel and without significant stenosis. The right posterior descending artery is a large size vessel with diffuse calcification noted throughout this vessel and without significant stenosis. The right posterolateral branch is a large size vessel with diffuse calcification noted throughout this vessel and without significant stenosis. Left Ventricle The left ventricle is normal in size with normal contractility. There was no cardiomyopathy. The left ventricular ejection fraction is estimated to be 55-60%. The left ventricular end diastolic pressure is 16 mmHg. There was no gradient across the aortic valve upon pullback. Conclusion Severely Calcified Coronaries. Non Obstructive Prox Cx 60% stenosis Preserved LV Fx, EF-55-60%, EDP-16 mmof Hg. Severe PAD and calcifed arteries. 30-40 cc Cotrast used. Recommendations Smoking Cessation Aggressive Medical TherapyCardiac Risk Reduction Program F/u SMA-7 after Hydration before pt. goes home. F/u SMA-[address] Maria CC; Arjun Isaacs / [place].
[2018-09-14 18:11] VITALS: TEMP 98.3
[2018-09-14 18:12] VITALS: BP 140/67; RESP 18
[2018-09-14 18:21] VITALS: PULSE 84
[2018-09-15] MEDS ORDERED: Metoprolol Succinate 50 mg XL Tab PO SCH (10:00)
== END 2018-09-14 18:15 | disposition home or self-care (01) ==
LOC: CATH 07:43
PROVIDERS: ATTEND Internal Medicine Cardiovascular Disease
DX: I25.110 Atherosclerotic heart disease of native coronary artery with unstable angina pectoris (principal); I10 Essential (primary) hypertension; E11.51 Type 2 diabetes mellitus with diabetic peripheral angiopathy without gangrene; E78.5 Hyperlipidemia, unspecified; Z79.84 Long term (current) use of oral hypoglycemic drugs; Z98.61 Coronary angioplasty status
CPT/HCPCS: 36415; 80048; 80061; 85025; 85610; 85730; 86850; 86900; 93005; 93458; 99152; 99153; C1760; C1769 ×2; C1887; C2629; J1644; J2250; J3010; J7030; J7040; Q9966

== ENCOUNTER 2018-10-26 11:06 | Day surgery (SDC) | payer MEDICARE, MEDICAID ==
[2018-10-16 11:48] VITALS: BMI 24.4
[2018-10-26] MEDS ORDERED: Propofol 10 mg/ml Inj (20 ML) ONE ×2 (12:39→13:14)
[2018-10-26] MEDS ORDERED: Sodium Chloride 0.9% 1,000 ML IV SCH (13:30)
[2018-10-26 14:02] VITALS: O2SAT 99
[2018-10-26 14:31] VITALS: BP 162/72; PULSE 65; RESP 18; TEMP 97.7
== END 2018-10-26 17:18 | disposition home or self-care (01) ==
LOC: ENDO 11:06
PROVIDERS: ATTEND Internal Medicine Gastroenterology
DX: Z12.11 Encounter for screening for malignant neoplasm of colon (principal); K63.5 Polyp of colon; K57.30 Diverticulosis of large intestine without perforation or abscess without bleeding; K64.1 Second degree hemorrhoids
CPT/HCPCS: 45380; 88305; J2001; J2704; J7030